=== PATIENT | male | born 1935 | race Caucasian/White ===

== ENCOUNTER 2024-01-29 12:12 | Emergency (ER) | payer MEDICARE, OTHER, SELFPAY ==
[2024-01-29 12:23] VITALS: BP 149/67
[2024-01-29 13:04] LABS: % Basophils 1.3 % (0-2); % Immature Granulocytes 0.7 % (0-0.5); % Lymphocytes 12.1 % (20.5-51.1); % Monocytes 8.4 % (1.7-9.3); % Neutrophils 73.5 % (42.2-75.2); Absolute Basophils 0.1 10^3/uL (0-0.2); Absolute Eosinophils 0.3 10^3/uL (0-0.7); Absolute Immature Granulocytes 0.1 10^3/uL (0-0.05); Absolute Lymphocytes 0.9 10^3/uL (1.2-3.4); Absolute Monocytes 0.6 10^3/uL (0.1-0.6); Absolute Neutrophils 5.6 10^3/uL (1.4-6.5); Hemoglobin 14.6 g/dL (13.0-18.0); Mean Corp Hgb Conc. 33.2 g/dL (33.0-37.0); Mean Corpuscular Hgb 29.1 pg (27.0-31.0); Mean Corpuscular Volume 87.8 fL (80.0-94.0); Mean Platelet Volume 9.8 fL (7.4-10.4); Nucleated Red Blood Cells % 0 % (-); Platelet Count 210 10^3/uL (130-400); Red Blood Cell Count 5.01 10^6/uL (4.70-6.10); Red Cell Dist. Width 14.3 % (11.5-14.5); White Blood Cell Count 7.5 10^3/uL (4.8-10.8)
[2024-01-29 13:07] LABS: Urine Albumin 1+ (Neg - Trace); Urine Bilirubin 1+ (Negative); Urine Character Clear (Clear); Urine Color Yellow; Urine Glucose Negative (Negative); Urine Ketone Negative (Negative); Urine Leukocyte Trace (Negative); Urine Nitrite Negative (Negative); Urine Occult Blood Negative (Negative); Urine Specific Gravity 1.015 (<1.030); Urine Urobilinogen 2+ (Neg - 1+); Urine pH 6.5 (5.0-9.0)
[2024-01-29 13:15] LABS: ALT (SGPT) 40 U/L (0-50); AST (SGOT) 30 U/L (17-59); Albumin 4.1 g/dl (3.5-5.0); Alkaline Phosphatase 102 U/L (38-126); Blood Urea Nitrogen 13 mg/dl (9-20); Calcium 9.4 mg/dl (8.4-10.2); Carbon Dioxide 30 mmol/L (22-30); Chloride 105 mmol/L (98-107); Glucose 127 mg/dl (70-99); Lipase 39 U/L (23-300); Potassium 4.7 mmol/L (3.5-5.1); Sodium 143 mmol/L (135-145); Total Bilirubin 1.1 mg/dl (0.2-1.3); Total Protein 6.8 g/dl (6.3-8.2); eGFR > 60.00
[2024-01-29 13:19] LABS: Urine Mucus Few
[2024-01-29 13:20] LABS: Urine Bacteria Few (Negative); Urine Red Blood Cell 0-2 /HPF (0-2); Urine Squamous Cell 0-2 /LPF (Few); Urine White Cell 0-2 /HPF (0-5)
[2024-01-29 14:13] VITALS: BMI 35.7
[2024-01-29 14:17] VITALS: BP 163/69
[2024-01-29 15:00] VITALS: BP 162/81
--- NOTE | 2024-01-29 15:16 | ED.GENMED ---
History of Present Illness
General
Chief Complaint: Abdominal Pain
Source: patient and family
Exam Limitations: none
Time Seen by Provider: 01/29/24 14:05
History of Present Illness
History of Present Illness:
88-year-old male complaining of left lower quadrant pain. Intermittent and mild over the last month. Much worse the last 3 to 4 days. Some anorexia. No vomiting. No urinary symptoms. Some mild constipation. No radiation of the flank back.
Past History
Past History
ED Past Medical History: Arrthythmia, HTN, Hypercholesterolemia and NIDDM
ED Past Surgical History: Orthopedic and Urological
Social History
Tobacco: Non-smoker
Alcohol: None
Drug: None
Personal: Single
Living: alone
Review of Systems
Review of Systems
All Other Systems: Not applicable
Constitutional: Denies fever
Respiratory: Reports no symptoms
Cardiac: Reports no symptoms
: Reports no symptoms
Phy Exam
Physical Exam
Physical Exam:
GENERAL: Alert and oriented in no apparent distress
EYE: Orbits normal.
NECK: Supple
CARDIAC: Regular rate and rhythm without any obvious murmurs.
LUNGS: Clear breath sounds,normal
ABDOMEN: Soft, mild reproducible left lower quadrant tenderness. No rebound or guarding no mass or hernia.
NEUROLOGICAL: Alert and oriented , grossly non-focal
SKIN: Warm and dry, no rash or lesion, no discoloration, skin intact.
MUSCULOSKELETAL: No edema,no deformity.Good color
PSYCH: Normal and appropriate interaction.
Course
Orders/Labs/Results
Orders:
Orders
01/29/24 12:38
Complete Blood Count/With Diff Urgent
Comprehensive Metabolic Panel Urgent
Lipase Urgent
Urinalysis Reflex To Culture Urgent
Date Specimen was Collected: 01/29/24
Time Specimen was Collected: 12:26
Urine Microscopic Reflex Cult Urgent
01/29/24 14:06
CT Abd/Pel (IV only)-DH only Urgent
Comment:
Reason For Exam: llq pain
01/29/24 16:30
Piperacillin/Tazo 3.375 Gram [Zosyn] 3.375 gram in 50 ml IV NOW
01/29/24 16:32
PT/INR [Prothrombin Time] Urgent
PTT Urgent
Abnormal Lab Results
01/29/24 01/29/24
12:38 16:32
Abs Immat Gran (auto) 0.1 H 10^3/uL
(0-0.05)
Absolute Lymphs (auto) 0.9 L 10^3/uL
(1.2-3.4)
Immature Gran % 0.7 H %
(0-0.5)
Lymphocytes % 12.1 L %
(20.5-51.1)
PT 29.5 H Sec
(11.4-14.6)
APTT 51.0 H Sec
(23.4-35.0)
Glucose 127 H mg/dl
(70-99)
Urine Bilirubin 1+ A
(Negative)
Urine Urobilinogen 2+ A
(Neg - 1+)
Leukocyte Esterase Rfl Trace A
(Negative)
Urine Bacteria (Reflex) Few A
(Negative)
Urine Albumin (Reflex) 1+ A
(Neg - Trace)
01/29/24 12:38
01/29/24 12:38
Vital Signs
Initial and Last Documented VS:
Initial Vital Signs
Pulse Resp BP Pulse Ox
52 18 149/67 96
01/29/24 12:23 01/29/24 12:23 01/29/24 12:23 01/29/24 12:23
Last Documented Vital Signs
Pulse Resp BP Pulse Ox
58 16 173/76 97
01/29/24 17:02 01/29/24 16:00 01/29/24 17:00 01/29/24 16:59
MDM/Problems Addressed
Differential Diagnosis Includes:
Progressive left lower quadrant pain. Moderately suspicious for diverticulitis. Workup in progress including CT scan. Labs stable. Urine stable.
*Radiology
Radiology exam reviewed: radiology read reviewed (Diverticulitis. No perforation or abscess)
*Pulse Oximetry
Patient hypoxic: no
*Critical Care Note
Total Time (30-74mins, 75-104mins- exclusive of procedures): Not Applicable
Update Note
Update Note:
Mild diverticulitis by CT. Discussed approach with patient and daughter. Feel all [place] is reasonable at this joint. Will stay away from [facility] and [facility] at this time.
ED Attending Note
-
Portions of this chart may have been created with voice recognition software.� Occasional wrong word or��sound alike� substitutions may have occurred due to the inherent limitations of voice recognition software.
Discharge Plan
Departure
Patient Disposition: Home (Routine Discharge)
Date of Disposition: 01/29/24
Time of Disposition: 16:31
Patient with high blood pressure during this ER visit?: Yes
Discharge Problem:
Diverticulitis
Instructions: Diverticulitis (DC), BLOOD PRESSURE
Prescriptions:
New
amoxicillin-pot clavulanate 875-125 mg tablet
1 tab PO BID Qty: 14 0RF
No Action
rosuvastatin 10 MG tablet
10 mg PO DAILY
metformin 500 mg Tablet
500 mg PO HS
diltiazem HCl 180 mg Capsule,Extended Release 24 Hr
180 mg PO HS
brinzolamide 1 % Drops,Suspension
1 drp LEFT EYE BID
allopurinol 100 mg Tablet
100 mg PO HS
nystatin-triamcinolone 100,000-0.1 unit/gram-% Ointment
1 applic TOPICAL BIDPRN PRN (Reason: eczema)
warfarin 6 mg Tablet
6 mg PO SUTUTHSA
warfarin 6 mg Tablet
3 mg PO MOWEFR
furosemide 20 mg Tablet
20 mg PO DAILY
valsartan 160 mg Tablet
160 mg PO DAILY
omega 4-ycr-yna-fish oil [Fish Oil] 1,000 (120-180) mg Capsule
1 cap PO HS
latanoprost (PF) 0.005 % Dropperette
1 drp BOTH EYES HS
Referrals:
Andry Ulrich PA-C [Family Provider] - Follow up in 2-3 days
Activity Restrictions/Additional Instructions:
Your prescription was sent to your pharmacy
Start the first dose tonight
Follow-up closely with your primary physician
Watch your INR closely while on the antibiotic
Interventions
Interventions:
*Risk Screen - Suicide Last Done: 01/29/24 12:23
*General Assessment Last Done: 01/29/24 12:23
*Neglect/Abuse Screening Last Done: 01/29/24 12:23
ED- Fall Risk Assessment Last Done: 01/29/24 17:02
*ED COVID-19 Vaccine History Last Done: 01/29/24 14:13
*Nursing Disposition Last Done: 01/29/24 17:02
TR-Cvinpz-Vgwsallauq Assessment Last Done: 01/29/24 14:13
Discharge Date and Time
Discharge Date/Time: 01/29/24 17:11
Print Language: SPANISH
[2024-01-29 16:00] VITALS: BP 185/85
[2024-01-29] MEDS: ZOSYN 50 IV (16:37)
[2024-01-29 16:51] LABS: PT 29.5 Sec (11.4-14.6)
[2024-01-29 17:00] VITALS: BP 173/76
== END 2024-01-29 17:11 | disposition home or self-care (01) ==
LOC: EMR 12:12
PROVIDERS: Emergency Medicine; EMERGENCY PHYSICIAN Emergency Medicine; FAMILY PHYSICIAN Physician Assistant Medical
DX: K57.32 Diverticulitis of large intestine without perforation or abscess without bleeding (principal); R63.0 Anorexia; K59.00 Constipation, unspecified; I10 Essential (primary) hypertension; E78.00 Pure hypercholesterolemia, unspecified; E11.9 Type 2 diabetes mellitus without complications; Z85.46 Personal history of malignant neoplasm of prostate
CPT/HCPCS: 99284; 96374; 74177; 80053; 81003; 81015; 83690; 85025; 85610; 85730; Q9967

== ENCOUNTER → 2024-05-20 07:46 | Outpatient (REF) | payer MEDICARE, OTHER, SELFPAY | LOC: HWRAD 07:46 | PROVIDERS: ATTENDING PHYSICIAN Family Medicine | DX: R41.3 Other amnesia (principal); R26.89 Other abnormalities of gait and mobility; R09.89 Other specified symptoms and signs involving the circulatory and respiratory systems | CPT/HCPCS: 70450; 93880 ==